=== PATIENT | female | born 1970 | race Caucasian/White ===

== ENCOUNTER 2019-12-29 11:11 | Outpatient (REF) | payer MEDICARE, MEDICAID, SELFPAY ==
[2019-12-29 14:32] LABS: Anion Gap 9 (12-20); Blood Urea Nitrogen 13 mg/dL (9-16); Carbon Dioxide 30 mmol/L (22-29); Chloride 104 mmol/L (96-108); Estimated Glomerular Filt Rate > 60; Potassium 4.1 mmol/l (3.3-5.1); Sodium 139 mmol/L (135-145)
[2019-12-30 11:17] LABS: Thyroglobulin 57.8 ng/mL; Thyroglobulin Antibodies <1 IU/mL (< or = 1)
== END 2019-12-29 11:12 | disposition home or self-care (01) ==
LOC: HO.10HDL 11:11
PROVIDERS: Visit Provider Family Medicine
DX: I10 Essential (primary) hypertension (principal); E01.0 Iodine-deficiency related diffuse (endemic) goiter
CPT/HCPCS: 36415; 80051; 82565; 84432; 84443; 84520; 86800

== ENCOUNTER 2020-01-29 08:40 | Outpatient (REF) | payer MEDICARE, MEDICAID, SELFPAY ==
--- NOTE | 2020-01-29 08:43 | MR_ITS ---
EXAMINATION: MR CERVICAL SPINE WITHOUT CONTRAST CLINICAL INFORMATION: Ataxia. Hyperreflexia. COMPARISON: None available. TECHNIQUE: MRI of the cervical spine was performed using routine sequences without contrast. FINDINGS: The cervical vertebral bodies maintain normal heights and alignment. Mild intervertebral disc height loss is seen at C3-C4, C4-C5, and C5-C6. No bone marrow edema is noted. Mild levoscoliotic curvature is seen. The cervical cord signal appears normal. The imaged portions of the intracranial contents appear normal. Incidental note is made of abnormal soft tissue prominence of the left palatine tonsil best seen on series 7 image 07/10. The uvula appears mildly deviated towards the right. A 1 cm nodule is present in the posterior aspect of the left lobe of the thyroid gland. SPINAL LEVELS: C2-C3: No posterior disc abnormality. No spinal canal or neural foraminal stenosis. C3-C4: No posterior disc abnormality. No spinal canal or neural foraminal stenosis. C4-C5: No posterior disc abnormality. No spinal canal or neural foraminal stenosis. C5-C6: Minimal disc bulging with disc height loss. No spinal canal or neural foraminal stenosis. C6-C7: No posterior disc abnormality. No spinal canal or neural foraminal stenosis. C7-T1: No posterior disc abnormality. No spinal canal or neural foraminal stenosis. MR/MR cervical spine wo con IMPRESSION: No spinal canal or neural foraminal stenosis identified. Incidentally noted soft tissue prominence within the left palatine tonsil which could be related to asymmetric lymphoid tissue. Consider direct visual inspection to exclude an underlying lesion.
== END 2020-01-29 08:41 | disposition home or self-care (01) ==
LOC: HO.MRI 08:40
PROVIDERS: PCP Family Medicine; Visit Provider Psychiatry & Neurology Neurology
DX: R27.0 Ataxia, unspecified (principal); R29.2 Abnormal reflex
CPT/HCPCS: 72141

== ENCOUNTER 2020-08-28 12:55 | Outpatient (REF) | payer MEDICARE, MEDICAID, SELFPAY ==
[2020-08-28 15:03] LABS: Thyroid Stimulating Hormone 0.23 uIU/mL (0.32-4.0)
[2020-08-28 15:16] LABS: Erythrocyte Sedimentation Rate 14 MM/HR (0-20)
[2020-08-28 15:17] LABS: Folate > 20.0 ng/mL (> or = 4.0); Vitamin B12 675 pg/mL (200-900)
[2020-08-29 08:32] LABS: Lyme Abs Screen <0.90 index
[2020-08-30 14:36] LABS: Anti Nuclear Antibody Screen NEGATIVE (NEGATIVE)
== END 2020-08-28 12:56 | disposition home or self-care (01) ==
LOC: HO.LAB 12:55
PROVIDERS: PCP Family Medicine; Visit Provider Psychiatry & Neurology Neurology
DX: H05.20 Unspecified exophthalmos (principal)
CPT/HCPCS: 36415; 82550; 82607; 82746; 84443; 85652; 86038; 86039; 86617; 86618

== ENCOUNTER → 2021-03-05 12:12 | Outpatient (REF) | payer MEDICARE, MEDICAID, SELFPAY ==
--- NOTE | 2021-03-05 12:18 | ECG_ITS ---
Test Reason : tachy Blood Pressure : / mmHG Vent. Rate : 117 BPM Atrial Rate : 117 BPM P-R Int : 168 ms QRS Dur : 118 ms QT Int : 336 ms P-R-T Axes : 054 052 007 degrees QTc Int : 468 ms Sinus tachycardia Possible Left atrial enlargement Incomplete right bundle branch block Abnormal ECG No previous ECGs available Referred By: Harpreet Quiñones Electronically Signed By:GUMARO BRAUN
== END ==
LOC: HO.CARD 12:12
PROVIDERS: PCP Family Medicine; Visit Provider Family Medicine
DX: R00.0 Tachycardia, unspecified (principal); I45.19 Other right bundle-branch block; R94.31 Abnormal electrocardiogram [ECG] [EKG]
CPT/HCPCS: 93005

== ENCOUNTER → 2021-04-07 10:25 | Outpatient (REF) | payer MEDICARE, MEDICAID, SELFPAY ==
--- NOTE | 2021-04-07 10:35 | ECG_ITS ---
Test Reason : tachycardia Blood Pressure : / mmHG Vent. Rate : 110 BPM Atrial Rate : 110 BPM P-R Int : 170 ms QRS Dur : 114 ms QT Int : 354 ms P-R-T Axes : 059 052 -18 degrees QTc Int : 479 ms Sinus tachycardia Possible Left atrial enlargement Incomplete right bundle branch block ST & T wave abnormality, consider anterior ischemia Abnormal ECG When compared with ECG of 05-MAR-2021 12:23, No significant change was found Referred By: Harpreet Quiñones Electronically Signed By:JENA MARKHAM MD
== END ==
LOC: HO.CARD 10:25
PROVIDERS: PCP Family Medicine; Visit Provider Family Medicine
DX: R00.0 Tachycardia, unspecified (principal); I45.10 Unspecified right bundle-branch block
CPT/HCPCS: 93005

== ENCOUNTER 2021-11-05 09:43 | Outpatient (REF) | payer MEDICARE, MEDICAID, SELFPAY ==
[2021-11-05 11:03] LABS: Anion Gap 12 (12-20); Blood Urea Nitrogen 16 mg/dL (9-16); Carbon Dioxide 28 mmol/L (22-29); Chloride 104 mmol/L (96-108); Estimated Glomerular Filt Rate > 60; Potassium 4.1 mmol/L (3.3-5.1); Sodium 140 mmol/L (135-145)
== END 2021-11-05 09:44 | disposition home or self-care (01) ==
LOC: HO.10HDL 09:43
PROVIDERS: Visit Provider Family Medicine
DX: I10 Essential (primary) hypertension (principal)
CPT/HCPCS: 36415; 80051; 82565; 84520

== ENCOUNTER 2022-01-16 12:18 | Outpatient (REF) | payer MEDICARE, MEDICAID, SELFPAY ==
[2022-01-16 13:39] LABS: MANUAL DIFF FLAG NO
[2022-01-16 13:44] LABS: Basophils Absolute Auto 0.1 X10*3/uL (0.0-0.2); Basophils Percent Auto 1.1 % (0-2); Eosinophils Percent Auto 0.8 % (0-4); Hematocrit 40.7 % (37.0-47.0); Hemoglobin 13.1 g/dl (12.0-16.0); Imm Gran Abs Auto 0.01 X10*3/uL (0.00-0.03); Imm Gran Pct Auto 0.2 % (0.0-0.4); Lymphocytes Absolute Auto 1.2 X10*3/uL (1.2-4.9); Lymphocytes Percent Auto 22.8 % (20-40); Mean Corpuscular HGB Conc 32.2 g/dl (31.0-35.0); Mean Corpuscular Hemoglobin 32.3 pg (27.0-33.0); Mean Corpuscular Volume 100.5 fL (80.0-98.0); Mean Platelet Volume 12.1 fL (9.4-12.3); Monocytes Absolute Auto 0.5 X10*3/uL (0.1-1.2); Monocytes Percent Auto 9.5 % (2-11); Neutrophils Absolute Auto 3.5 x10*3/uL (2.0-8.3); Neutrophils Percent Auto 65.6 % (45-73); Platelet Count 242 X10*3/uL (160-400); Red Blood Count 4.05 X10*6/uL (4.20-5.50); Red Cell Distribution Width 12.9 % (11.0-16.0); White Blood Count 5.3 X10*3/uL (4.8-10.8)
[2022-01-16 14:19] LABS: Erythrocyte Sedimentation Rate 18 MM/HR (0-20)
[2022-01-16 14:30] LABS: Free T4 (Free Thyroxine) 0.97 ng/dL (0.71-1.85); Thyroid Stimulating Hormone 0.26 uIU/mL (0.32-4.0)
[2022-01-19 21:36] LABS: Thyroglobulin 61.5 ng/mL
== END 2022-01-16 12:19 | disposition home or self-care (01) ==
LOC: HO.10HDL 12:18
PROVIDERS: Visit Provider Family Medicine
DX: Z13.89 Encounter for screening for other disorder (principal)
CPT/HCPCS: 36415; 84432; 84439; 84443; 85025; 85652

== ENCOUNTER → 2022-01-16 12:36 | Outpatient (REF) | payer MEDICARE, MEDICAID, SELFPAY ==
--- NOTE | 2022-01-16 12:42 | CA_ITS ---
Transthoracic Echocardiogram Patient (Last, First, Middle): Lanny Murphy, Gender: Female Date of : 1970 Age: 51 Procedure Date: 01/16/2022 Procedure Type: Transthoracic Echocardiogram Location: OP Height: 157.48 cm Weight: 45.36 kg BSA: 1.42 m2 Heart Rate: 94 bpm BP: 115 / 52 mmHg Modern Languages Professor: SB Referring MD: Harpreet Quiñones MD Symptoms: R01.1 Study Quality: TDS, but adequate due to pectus excavatum. ECG Rhythm: Sinus Conclusions: - The left ventricular systolic function is normal. The calculated ejection fraction is 67% by biplane method. - There is mild septal asymmetric hypertrophy. - There is mild calcification of the aortic valve. - No obvious valvular pathology seen on this study. Findings Left Ventricle Normal left ventricular cavity size. The left ventricular systolic function is normal. The calculated ejection fraction is 67% by biplane method. There is no evidence of regional wall motion abnormalities. Diastolic function is indeterminate on the basis of available data. There is mild septal asymmetric hypertrophy. Right Ventricle Normal right ventricular cavity size and systolic function. Atria Both atria are normal in size. Aortic Valve There is mild calcification of the aortic valve. There is no aortic valve stenosis. There is no aortic valve regurgitation. Mitral Valve The mitral valve appears normal. There is no mitral valve regurgitation. There is no mitral valve stenosis. Pulmonic Valve The pulmonic valve is likely normal. Tricuspid Valve There is trace tricuspid valve regurgitation. There is no evidence of pulmonary hypertension. Great Vessels The asc aorta is normal in size. Venous The inferior vena cava is normal in size and collapses greater than 50% with inspiration. Pericardium/Pleural There is no evidence of pericardial effusion. Prior Study Comparison Changes noted compared to prior study dated: 07/25/2014. Mild septal hypertrophy noted. Recommendations, Care & Conclusions No obvious valvular pathology seen on this study. Measurements 2D Linear Measurements IVSd: 1.26 0.6-0.9/0.6-1.0 cm LVIDd: 3.36 3.9-5.3/4.2-5.9 cm LVIDd Index: 2.37 2.4-3.2/2.2-3.1 cm/m2 LVIDs: 2.08 2.0-3.6 cm LVPWd: 0.55 0.7-1.1 cm LV Mass: 104.43 67-162/88-224 g LV Mass Index: 73.54 43-95/49-115 g/m2 LVOT Diam: 2.30 3.0+(-)1.3 cm 2D Systolic Function EF 4C: 64.60 >55% EF 2C: 66.40 >55% EF BiP: 67.20 >55% Mitral Valve MV Pk E: 0.74 MV PK A: 1.00 MV Decel Time: 210.00 E/A: 0.70 E'Lateral: 5.33 E'Medial: 5.55 E/E' Med: 13.30 E/E' Lat: 13.80 PHT: 62.00 MVA PHT: 3.55 Decel Titus: 3.50 Aortic Valve AoV Pk Fabrice: 1.44 AoV Mn Fabrice: 0.93 AoV VTI: 0.24 AoV Pk Grad: 8.00 Aov Mn Grad: 4.00 THIEN Cont.VTI: 3.58 LVOT LVOT Pk Fabrice: 1.12 LVOT Mn Afbrice: 0.77 LVOT VTI: 0.21 LVOT Pk Grad: 5.00 LVOT Mn Grad: 3.00 LVOT Diam: 2.30 LVOT Area: 4.15 Diastolic Function MV Pk E: 0.74 MV Pk A: 1.00 E/A: 0.70 E'Medial: 5.55 E/E' Med: 13.30 E' Laterial: 5.33 E/E' Lat: 13.80 Right Ventricle TAPSE (mm): 19.60 TVS' Fabrice: 11.20 Tricuspid Valve TR Pk Fabrice: 2.33 TR Pk Grad: 22.00 RA Press: 3.00 RVSP: 25.00 Great Vessels Aorta Sinus of Valsalva: 2.70 2.0-3.5 cm Ao Asc: 2.10 2.1-3.4 cm Pulmonary Veins Pulm Vein S/D 1.50 Pulmonary Valve PV Pk Fabrice: 1.02 Peak PV Grad: 4.00 Updated in Other Vendor System with Status of Final Deni Paz MD electronically signed on 01/17/2022 12:30:06 PM with status of Final
== END ==
LOC: HO.CARD 12:36
PROVIDERS: PCP Family Medicine; Visit Provider Family Medicine
DX: R01.1 Cardiac murmur, unspecified (principal); R00.0 Tachycardia, unspecified
CPT/HCPCS: 36415; 84432; 84439; 84443; 85025; 85652; 93306

== ENCOUNTER 2022-04-28 09:03 | Outpatient (REF) | payer MEDICARE, MEDICAID, SELFPAY ==
[2022-04-28 11:08] LABS: Anion Gap 14 (12-20); Blood Urea Nitrogen 17 mg/dL (9-16); Carbon Dioxide 25 mmol/L (22-29); Chloride 105 mmol/L (96-108); Estimated Glomerular Filt Rate > 60; Potassium 3.6 mmol/L (3.3-5.1); Sodium 140 mmol/L (135-145)
== END 2022-04-28 09:04 | disposition home or self-care (01) ==
LOC: HO.10HDL 09:03
PROVIDERS: Visit Provider Family Medicine
DX: I10 Essential (primary) hypertension (principal)
CPT/HCPCS: 36415; 80051; 82565; 84520

== ENCOUNTER → 2022-08-18 12:44 | Outpatient (BNVA) | payer MEDICARE, MEDICAID, SELFPAY | PROVIDERS: PCP Family Medicine; Visit Provider Psychiatry & Neurology Neurology | DX: R26.9 Unspecified abnormalities of gait and mobility (principal) | CPT/HCPCS: 99202 ==

== ENCOUNTER 2022-10-23 07:56 | Outpatient (REF) | payer MEDICARE, MEDICAID, SELFPAY ==
--- NOTE | ~2022-10-23 | MR_ITS ---
EXAMINATION: MR BRAIN WITHOUT CONTRAST CLINICAL INFORMATION: Abnormality of gait and mobility. COMPARISON: Brain MRI dated 11/28/2018. TECHNIQUE: Multiplanar, multisequence imaging of the brain was performed without contrast. FINDINGS: No diffusion abnormalities are identified to suggest an acute or subacute infarct. The ventricles are normal in size. No mass effect or midline shift is seen. A subcentimeter focus of T2 hyperintense signal change in the left frontal kaplan radiata is stable. No extra-axial fluid collections are seen. The brainstem and cerebellum are normal. Heterogeneous marrow signal in the clivus with regions of fatty change are stable. The gradient refocused acquisition is normal. The craniovertebral junction and remaining midline structures are normal. The major intracranial flow voids at the level of the [place] are preserved. The dural venous sinus flow voids are maintained. The mastoid air cells are well aerated. Chronic mucosal opacification of the right frontal sinus and right frontal recess again evident. The remaining paranasal sinuses are otherwise fairly well aerated. MR/MR head/brain wo con IMPRESSION: Stable examination. No acute process. Punctate focus of chronic signal in the left frontal kaplan radiata of indeterminate etiology and clinical significance. Chronic mucosal opacification of the right frontal sinus.
== END 2022-10-23 07:57 | disposition home or self-care (01) ==
LOC: HO.MRI 07:56
PROVIDERS: PCP Family Medicine; Visit Provider Psychiatry & Neurology Neurology
DX: R26.9 Unspecified abnormalities of gait and mobility (principal); R42 Dizziness and giddiness
CPT/HCPCS: 70551

== ENCOUNTER 2022-11-19 13:47 | Outpatient (AMB) | payer MEDICARE, MEDICAID, SELFPAY ==
--- NOTE | 2022-11-19 13:55 | A.OFFVIS_ITS ---
Intake Vital Signs 11/19/22 13:56 Height 5 ft 2.5 in Weight 108 lb BMI 19.4 BP 100/60 Blood Pressure Location Rt brachial Position Sitting Intake Visit Reasons: 3m follow up Parkinson - Confirmed Intake Note: Pt presents today for fup, states shes feeling the same Allergies Iodinated Contrast Media [IV DYE, IODINE CONTAINING] Allergy (Severe, Verified 11/19/22 14:00) THROAT EDEMA HPI HPI Comments History of Present Illness Details 52 y/o female comes for evaluation of ga it difficulty. Pt reports light headedness and feeling like passing out, but no episodes of passing out. Pt denies double vision or vertigo. It happens anytime of the day, but happens mostly when she start walking. No falls reported. She is on lisinopril 10 mg, losartan 50 mg and metoprolol 100 mg daily. Reviewed patient's previous ECG result. Sinus tachycardia Possible Left atrial enlargement Incomplete right bundle branch block ST & T wave abnormality, consider anterior ischemia Abnormal ECG When compared with ECG of 05-MAR-2021 12:23, No significant change was found She did not start physical therapy yet. Pt has hx of 2 eye surgeries for her strabismus [facility] Medical History Dizziness Gait disorder Strabismus HTN (hypertension) Surgical History History of knee surgery Hx of eye surgery Family History Father Lymphoma Social History (Updated 11/19/22 @ 14:01 by Raiza Wilkinson) Alcohol intake: never Patient Tobacco Use Status: Never used Tobacco Review of Systems Const All systems reviewed & are unremarkable except as noted in HPI and below Physical Exam Vital Signs: Last Vital Signs BP 100/60 11/19/22 13:56 BMI result Body Mass Index 19.4 Const Orientation/consciousness: patient oriented x3 Neuro Other: difficulty with pursuit movements , left eye movements slower retrognathia trunk tilted to left , no scoliosis gait, narrow based, slow small steps . Tone LE mild increase Hip tilted to left General: patient oriented x3, moves all extremities and no focal motor deficits Cranial nerves: Yes Normal facial strength present, Yes Midline tongue present and Yes Symmetric palate elevation present Cognition (Neuro): normal cognition Motor exam (neuro): 5/5 motor strength present throughout and Normal motor muscle tone present throughout Deep tendon reflexes (DTR's): Right triceps reflex intensity grade: 1+, Left triceps reflex intensity grade: 1+, Rt Biceps (C5, C6): 1+, Left biceps reflex intensity grade: 1+, Right brachioradialis reflex intensity grade: 1+, Left brachioradialis reflex intensity grade: 1+, Right patellar reflex intensity grade: 1+ and Left patellar reflex intensity grade: 1+ Coordination: [id number] test normal Assessment & Plan Assessment & Plan (1) Gait disorder: Comment: likely developmental ? CP Code(s): R26.9 - Unspecified abnormalities of gait and mobility (2) Dizziness: Code(s): R42 - Dizziness and giddiness (3) Light headedness: Code(s): R42 - Dizziness and giddiness Plan Advised patient to hold lisinopril and monitor BP. Pt has appointment with her primary care on 12/04/22, and advised patient to have BP medication reevaluation. Physical therapy order given to patient. Advised patient to increase PO fluid intake and change her position slowly. Coding Level of Care Code Est Pt Level 3 (14246) Diagnoses Gait disorder R26.9 Dizziness R42 Light headedness R42
[2022-11-19 13:56] VITALS: BP 100/60; BMI 19.4
== END 2022-11-19 14:19 | disposition home or self-care (01) ==
PROVIDERS: PCP Family Medicine; Visit Provider Nurse Practitioner Family
DX: R26.9 Unspecified abnormalities of gait and mobility (principal); R42 Dizziness and giddiness
CPT/HCPCS: 99213

== ENCOUNTER → 2022-11-19 13:47 | Outpatient (BNVA) | payer MEDICARE, MEDICAID, SELFPAY | PROVIDERS: PCP Family Medicine; Visit Provider Nurse Practitioner Family | DX: R26.9 Unspecified abnormalities of gait and mobility (principal); R42 Dizziness and giddiness | CPT/HCPCS: 99212 ==

== ENCOUNTER 2022-12-18 09:04 | Outpatient (RCR) | payer MEDICARE, MEDICAID, SELFPAY | END 2022-12-28 12:10 | disposition home or self-care (01) | LOC: HO.PT 09:04 | PROVIDERS: PCP Family Medicine; Visit Provider Psychiatry & Neurology Neurology | DX: R26.9 Unspecified abnormalities of gait and mobility (principal) | CPT/HCPCS: 97162 ==

== ENCOUNTER 2022-12-23 08:13 | Outpatient (REF) | payer MEDICARE, MEDICAID, SELFPAY | END 2022-12-23 08:14 | disposition home or self-care (01) | LOC: HO.LAB 08:13 | PROVIDERS: PCP Family Medicine; Visit Provider Family Medicine | DX: I10 Essential (primary) hypertension (principal); R00.0 Tachycardia, unspecified; Z82.49 Family history of ischemic heart disease and other diseases of the circulatory system | CPT/HCPCS: 36415; 80051; 80061; 82565; 84520; 85025 ==

== ENCOUNTER → 2023-03-24 09:57 | Outpatient (REF) | payer MEDICARE, MEDICAID, SELFPAY ==
--- NOTE | 2023-03-24 10:01 | HM_ITS ---
Conclusion: 1. Patient was monitored for total period of 2 days 2. Baseline was normal sinus rhythm with average heart of 92 beats per minute 3. Frequent sinus tachycardia noted 28% of time heart rate about 100 beats per minute 4. No significant pauses noted 5. Rare ectopy noted 6. No patient reported events MTDD
== END ==
LOC: HO.CARD 09:57
PROVIDERS: PCP Family Medicine; Visit Provider Family Medicine
DX: I49.8 Other specified cardiac arrhythmias (principal)
CPT/HCPCS: 93242

== ENCOUNTER → 2023-03-24 10:01 | Outpatient (BNV) | payer MEDICARE, MEDICAID, SELFPAY | PROVIDERS: PCP Family Medicine; Visit Provider Internal Medicine Cardiovascular Disease | DX: R00.0 Tachycardia, unspecified (principal) | CPT/HCPCS: 93244 ==

== ENCOUNTER 2023-07-07 13:00 | Outpatient (AMB) | payer MEDICARE, MEDICAID, SELFPAY ==
--- NOTE | 2023-07-07 13:02 | MHC.OFFVIS ---
Vital Signs 07/07/23 13:08 Height 5 ft 2.5 in Weight 117 lb 8 oz BMI 21.1 BP 112/60 Blood Pressure Location Lt brachial Position Sitting Pulse 90 Pulse Source Pulse Oximeter Pulse Oximetry (%) 100 Oxygen Delivery Method Room Air Intake Visit Reasons: follow up Parkinson - Confirmed Intake Note: Patient presents for f/u. Allergies Iodinated Contrast Media [IV DYE, IODINE CONTAINING] Allergy (Severe, Verified 07/07/23 13:07) THROAT EDEMA HPI Comments Details: 53 y/o female comes for follow up of light headedness. Pt reports light headedness and feeling like passing out, but no episodes of passing out. Pt denies double vision or vertigo. It happens anytime of the day, but happens mostly when she walks long distance. She does not get light headedness when she is sitting or resting. She feels like passing out . No falls reported. She is on carvedilol 12.5 mg, lisinopril 10 mg, losartan 50 mg and metoprolol 100 mg daily. Reviewed patient's previous ECG result. Sinus tachycardia Possible Left atrial enlargement Incomplete right bundle branch block ST & T wave abnormality, consider anterior ischemia Abnormal ECG When compared with ECG of 05-MAR-2021 12:23, No significant change was found. Pt has hx of 2 eye surgeries for her strabismus. Pt reports snoring, but denies daytime sleepiness or sleep disturbance. Pt does not want to do sleep study at this time. [facility] Medical History Dizziness Gait disorder Strabismus HTN (hypertension) Surgical History History of knee surgery Hx of eye surgery Family History Father Lymphoma Social History Alcohol intake: never Patient Tobacco Use Status: Never used Tobacco Review of Systems Const All systems reviewed & are unremarkable except as noted in HPI and below Physical Exam Vital Signs: BMI result Body Mass Index 21.1 Const Orientation/consciousness: patient oriented x3 Neuro Other: difficulty with pursuit movements , left eye movements slower retrognathia trunk tilted to left , no scoliosis gait, narrow based, slow small steps . Tone LE mild increase Hip tilted to left General: patient oriented x3, moves all extremities and no focal motor deficits Cranial nerves: Yes Normal facial strength present, Yes Midline tongue present and Yes Symmetric palate elevation present Cognition (Neuro): normal cognition Motor exam (neuro): 5/5 motor strength present throughout and Normal motor muscle tone present throughout Deep tendon reflexes (DTR's): Right triceps reflex intensity grade: 1+, Left triceps reflex intensity grade: 1+, Rt Biceps (C5, C6): 1+, Left biceps reflex intensity grade: 1+, Right brachioradialis reflex intensity grade: 1+, Left brachioradialis reflex intensity grade: 1+, Right patellar reflex intensity grade: 1+ and Left patellar reflex intensity grade: 1+ Coordination: [id number] test normal Assessment & Plan Assessment & Plan (1) Gait disorder: Comment: likely developmental ? CP Code(s): R26.9 - Unspecified abnormalities of gait and mobility Category: Medical (2) Light headedness: Code(s): R42 - Dizziness and giddiness Category: Medical Plan Advised patient to consult with her industrial technologist for cardiac medication for re-evaluation if metoprolol dosage can be decreased, and monitor BP and HR. Advised patient to increase PO fluid intake and change her position slowly. Coding Level of Care Code Est Pt Level 3 (32839) Diagnoses Gait disorder R26.9 Light headedness R42
[2023-07-07 13:08] VITALS: BP 112/60; PULSE 90; O2SAT 100; BMI 21.1
== END 2023-07-07 13:35 | disposition home or self-care (01) ==
PROVIDERS: PCP Family Medicine; Visit Provider Nurse Practitioner Family
DX: R26.9 Unspecified abnormalities of gait and mobility (principal); R42 Dizziness and giddiness
CPT/HCPCS: 99213

== ENCOUNTER → 2023-07-07 13:00 | Outpatient (BNVA) | payer MEDICARE, MEDICAID, SELFPAY | PROVIDERS: PCP Family Medicine; Visit Provider Nurse Practitioner Family | DX: R26.9 Unspecified abnormalities of gait and mobility (principal); R42 Dizziness and giddiness | CPT/HCPCS: 99212 ==

== ENCOUNTER 2023-08-10 12:47 | Outpatient (REF) | payer MEDICARE, MEDICAID, SELFPAY ==
[2023-08-10 13:12] LABS: MANUAL DIFF FLAG NO
[2023-08-10 13:46] LABS: Basophils Absolute Auto 0.1 X10*3/uL (0.0-0.2); Basophils Percent Auto 1.3 % (0-2); Eosinophils Absolute Auto 0.1 X10*3/uL (0.0-0.4); Hematocrit 38.1 % (37.0-47.0); Hemoglobin 12.5 g/dl (12.0-16.0); Imm Gran Abs Auto 0.01 X10*3/uL (0.00-0.03); Imm Gran Pct Auto 0.2 % (0.0-0.4); Lymphocytes Absolute Auto 1.1 X10*3/uL (1.2-4.9); Mean Corpuscular HGB Conc 32.8 g/dl (31.0-35.0); Mean Corpuscular Hemoglobin 31.8 pg (27.0-33.0); Mean Corpuscular Volume 96.9 fL (80.0-98.0); Mean Platelet Volume 11.4 fL (9.4-12.3); Monocytes Absolute Auto 0.5 X10*3/uL (0.1-1.2); Monocytes Percent Auto 10.3 % (2-11); Neutrophils Absolute Auto 2.8 x10*3/uL (2.0-8.3); Neutrophils Percent Auto 61.2 % (45-73); Platelet Count 238 X10*3/uL (160-400); Red Blood Count 3.93 X10*6/uL (4.20-5.50); Red Cell Distribution Width 14.3 % (11.0-16.0); White Blood Count 4.6 X10*3/uL (4.8-10.8)
[2023-08-10 14:24] LABS: Anion Gap 9 (12-20); Blood Urea Nitrogen 15 mg/dL (9-16); Carbon Dioxide 29 mmol/L (22-29); Chloride 107 mmol/L (96-108); Estimated Glomerular Filt Rate > 60; Potassium 3.7 mmol/L (3.3-5.1); Sodium 141 mmol/L (135-145)
== END 2023-08-10 12:48 | disposition home or self-care (01) ==
LOC: HO.LAB 12:47
PROVIDERS: PCP Family Medicine; Visit Provider Family Medicine
DX: I10 Essential (primary) hypertension (principal); D72.819 Decreased white blood cell count, unspecified
CPT/HCPCS: 36415; 80051; 82565; 84520; 85025

== ENCOUNTER 2023-10-05 13:52 | Outpatient (AMB) | payer MEDICARE, MEDICAID, SELFPAY ==
--- NOTE | 2023-10-05 14:26 | MHC.OFFVIS ---
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 It seems that she has had this problem for a long time. She has been seen by Neurology. Per the initial neurology consultation in 2022, it was thought that the gait difficulty might be developmental. She was then referred to PT but then there was an issue with high blood pressure and that was not pursued. From the cardiac standpoint, no known coronary disease myocardial infarction or cardiomyopathy or any other cardiac issues. Today's blood pressure is high but she states that it is because of being anxious coming here. The previous blood pressure from June is completely normal. According to her, sometimes when she is walking she feels as though she is dizzy/lightheaded. No clear syncopal episodes. Seems more of a subjective sensation. No other complaints like anginal-type chest pains. [facility] Medical History Dizziness Gait disorder Strabismus HTN (hypertension) Surgical History History of knee surgery Hx of eye surgery Family History Father Lymphoma Social History Alcohol intake: never Patient Tobacco Use Status: Never used Tobacco Review of Systems Const Denies chills, Denies daytime sleepiness, Denies fatigue, Denies fever(s), Denies poor appetite, Denies snoring, Denies stops breathing during sleep, Denies weakness, Denies weight gain and Denies weight loss Eyes Denies loss of vision ENT Denies dizziness and Denies hearing loss Card Denies chest pain, Denies irregular heart rhythm, Denies claudication, Denies leg edema, Denies lightheadedness, Denies palpitations, Denies dyspnea on exertion and Denies orthopnea Resp Denies cough, Denies excessive phlegm production, Denies dyspnea on exertion, Denies snoring and Denies wheezing GI Denies abdominal pain, Denies hematochezia, Denies change in bowel habits, Denies nausea and Denies vomiting Denies urinary frequency and Denies dysuria Musc Denies arthralgias, Denies muscle weakness, Denies numbness and Denies other Skin/Breast Denies nail changes and Denies rash Neuro Denies Abnormal speech present, Denies dizziness, Denies loss of vision, Denies memory loss, Denies numbness and Denies weakness Psych Denies depression and Denies memory loss Endo Denies fatigue and Denies palpitations Gildardo/Lymph Denies easy bruising Aller/Immun Denies wheezing Physical Exam Vital Signs: Last Vital Signs Pulse 105 H 10/05/23 14:27 BP 190/84 H 10/05/23 14:27 BMI result Body Mass Index 20.9 Const General: comfortable and no acute distress Orientation/consciousness: patient oriented x3 HEENT Other: Unremarkable Head: Yes normal to inspection Neck Neck: Yes normal visual inspection Chest Chest palpation & inspection: normal inspection of the chest Resp Auscultation: clear to auscultation bilaterally Cardio Palpation: normal PMI Heart sounds: S1 normal heart sound present, S2 normal heart sound present, no gallops, no murmurs and no rubs GI Palpation (GI): Soft to palpation Back/Spine/Pelvis Other: unremarkable Skin General skin exam: no rashes or lesions noted Neuro General: patient oriented x3 Speech: No Abnormal speech present Extrem General: Yes normal to inspection Psych Mental Status: mental status grossly normal Office Procedures EKG Details: EKG with underlying sinus tachycardia at 105/Min; possible left atrial enlargement; right bundle-branch block pattern; otherwise unremarkable. [id number], Complete Assessment & Plan Assessment & Plan (1) Dizziness: Code(s): R42 - Dizziness and giddiness Category: Medical (2) HTN (hypertension): Code(s): I10 - Essential (primary) hypertension Category: Medical Plan EKG shows sinus tachycardia/right bundle-branch block pattern. This seems to be a chronic finding. Echocardiogram with LVEF of 67%. Mild septal hypertrophy and mild aortic valve calcification but otherwise unremarkable. Holter shows underlying sinus rhythm with an average rate of 92/Min. Sinus tachycardia about 28% the time. Overall, subjective sensation of dizziness but no objective evidence of hypotension. Rather hypertensive which she blames on anxiety. Do not believe her symptoms are cardiogenic in nature. We will anyway, check a tilt-table test to look for any clear-cut orthostatic hypotension. Otherwise, with regard to high blood pressure, she blames it on anxiety. Advised to do home blood pressure checks and contact us. She can bring it for the next visit. For meds, she is on carvedilol/losartan and she states she is very compliant. However, prior notes state rather otherwise. We discussed about these today. Orders: Orders ECG Tilt Table Test Today R42 - Dizziness and giddiness Coding Level of Care Code New Pt Level 3 (85510) Diagnoses Dizziness R42 HTN (hypertension) I10 CPT Codes EKG - CPT: 37279-[id number], Complete ([id number])
[2023-10-05 14:27] VITALS: BP 190/84; PULSE 105; BMI 20.9
== END 2023-10-05 14:56 | disposition home or self-care (01) ==
PROVIDERS: PCP Family Medicine; Visit Provider Internal Medicine
DX: I10 Essential (primary) hypertension (principal); R42 Dizziness and giddiness
CPT/HCPCS: 93010; 99213

== ENCOUNTER → 2023-10-05 13:52 | Outpatient (BNVA) | payer MEDICARE, MEDICAID, SELFPAY | PROVIDERS: PCP Family Medicine; Visit Provider Internal Medicine | DX: R42 Dizziness and giddiness (principal); I10 Essential (primary) hypertension | CPT/HCPCS: 93005; 99212 ==

== ENCOUNTER 2023-11-25 13:01 | Outpatient (AMB) | payer MEDICARE, MEDICAID, SELFPAY ==
--- NOTE | 2023-11-25 13:11 | A.OFFVIS_ITS ---
Vital Signs 11/25/23 13:12 Height 5 ft 2.5 in Weight 117 lb 4.575 oz BMI 21.1 BP 170/82 H Blood Pressure Location Lt brachial Position Sitting Pulse 88 Pulse Source Pulse Oximeter Intake Visit Reasons: 2 mth f/up tilt table/ HS Technical Mgr Required: No Allergies Iodinated Contrast Media [IV DYE, IODINE CONTAINING] Allergy (Severe, Verified 11/25/23 13:16) THROAT EDEMA Medication List - Last Reconciled 11/25/23 by Mey Perez, SOLITARIO-C carvedilol 12.5 mg PO BID losartan 100 mg PO DAILY multivitamin 1 tab PO DAILY HPI HPI 2 mth f/up tilt table/ HS: Details: Lanny is a 53-year-old female with past medical history of hypertension, gait disorder, chronic lightheadedness who recently underwent a tilt-table test and now presents for follow-up. Today she reports that she continues to have lightheadedness when she is walking. She says she can only walk down the street for 1 house and then she has to stop. She feels that if she pushes herself she may pass out. In the past she used to walk all over but not in the last many years. She said her lightheadedness symptoms started 10 years ago after having physical therapy on her left shoulder and she heard a crack in the shoulder joint. Since then she has had this persistent symptom however states it is only with walking. She does not have lightheadedness when sitting, laying down or rolling over in bed. No shortness of breath, PND, orthopnea or edema. No chest discomfort at rest or with activity. No presyncope, syncope, falls. She does not want to use a cane for balance. 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 She is compliant with her medications but tells me that her blood pressures are high when she comes to the doctor's offices. She does check her blood pressure at home and tells me it is good however does not know the numbers off the top of her head. PFSH Medical History Dizziness Gait disorder Strabismus HTN (hypertension) Surgical History History of knee surgery Hx of eye surgery Family History Father Lymphoma Social History Alcohol intake: never Patient Tobacco Use Status: Never used Tobacco Review of Systems Const All systems reviewed & are unremarkable except as noted in HPI and below ENT Reports dizziness (With walking for the last 10 years) Card Denies chest pain, Denies chest pain at rest, Denies chest pain with activity, Denies rapid heart rate, Denies pedal edema, Denies edema, Denies leg edema, Denies lightheadedness, Denies palpitations, Denies dyspnea, Denies dyspnea on exertion and Denies orthopnea Resp Denies cough, Denies dyspnea and Denies dyspnea on exertion GI Denies hematochezia and Denies change in stool character Musc Denies abnormal gait, Denies limited range of motion, Denies muscle cramps, Denies muscle weakness, Denies numbness, Denies radiating pain into limb, Denies stiffness and Denies tingling Neuro Denies abnormal gait, Reports dizziness (With walking for the last 10 years), Denies numbness and Denies tingling Endo Denies palpitations Physical Exam Vital Signs: Last Vital Signs Pulse 88 11/25/23 13:12 BP 170/82 H 11/25/23 13:12 BMI result Body Mass Index 21.1 Const General: cooperative, healthy appearing, comfortable and no acute distress Orientation/consciousness: patient oriented x3 Neck Neck: Yes normal visual inspection Resp Effort & Inspection: normal respiratory effort Auscultation: clear to auscultation bilaterally, no rales, no rhonchi and no wheezes Cardio Jugular venous distension: no JVD Rate: regular rate Rhythm: regular rhythm Heart sounds: S1 normal heart sound present, S2 normal heart sound present, no murmurs and no rubs Neuro General: patient oriented x3 Extrem General: Yes normal to inspection Psych Appearance: grossly normal Mental Status: mental status grossly normal Speech and movement: Normal speech and movement present Assessment & Plan Assessment & Plan (1) Light headedness: Code(s): R42 - Dizziness and giddiness Category: Medical Plan: Report of lightheadedness as described above, chronic with walking over the last 10 years. She describes that it feels like she is going to pass out but she has never had syncope. An echocardiogram was done on 01/16/2022 showing EF 67%, mild septal asymmetric hypertrophy, mild calcification of the aortic valve. Holter monitor was done on 03/24/2023 for 2 days showing sinus rhythm with average heart rate 92, frequent sinus tachycardia, 28% of the time heart rate greater than 100. EKG from 10/05/2023 shows sinus tachycardia, possible left atrial enlargement and right bundle branch block, rate. A tilt-table test was done on 11/02/2023 showing appropriate heart rate and blood pressure response to tilt. She was hypertensive at the time of the test and increasing her carvedilol was recommended. Today she reports that she still has her lightheadedness symptom with walking. Test results reviewed with her in detail. There is no cardiac f indings that contribute to her symptom. Her blood pressure is elevated today. I recommend that her carvedilol dose be increased to 25 mg b.i.d.. Her cardiology follow-up will be p.r.n.. Will forward this note to her PCP and ask that he adjust the carvedilol if he is in agreement. (2) HTN (hypertension): Code(s): I10 - Essential (primary) hypertension Category: Medical Plan: History of hypertension. Blood pressure elevated today at 170/82, recheck done by me unchanged. She says her office blood pressures are always high because of anxiety. She tells me her home blood pressures are better controlled but is not able to recall the numbers today. According to the tilt-table report she told them her home systolic typically is 140-160. Recommend increasing carvedilol dose as above. Continue losartan. Plan Time spent on chart review, documentation, interview and assessment Coding Level of Care Code Est Pt Level 3 (48056) Diagnoses Light headedness R42 HTN (hypertension) I10 Time Spent (min) 24
[2023-11-25 13:12] VITALS: BP 170/82; PULSE 88; BMI 21.1
== END 2023-11-25 14:25 | disposition home or self-care (01) ==
PROVIDERS: PCP Family Medicine; Visit Provider Nurse Practitioner Family
DX: R42 Dizziness and giddiness (principal); I10 Essential (primary) hypertension
CPT/HCPCS: 99213

== ENCOUNTER → 2023-11-25 13:01 | Outpatient (BNVA) | payer MEDICARE, MEDICAID, SELFPAY | PROVIDERS: PCP Family Medicine; Visit Provider Nurse Practitioner Family | DX: R42 Dizziness and giddiness (principal); I10 Essential (primary) hypertension | CPT/HCPCS: 99212 ==

== ENCOUNTER 2024-03-20 13:45 | Outpatient (REF) | payer MEDICARE, MEDICAID, SELFPAY ==
[2024-03-20 14:45] LABS: Hematocrit 41.9 % (37.0-47.0); Hemoglobin 13.7 g/dl (12.0-16.0); Mean Corpuscular HGB Conc 32.7 g/dl (31.0-35.0); Mean Corpuscular Hemoglobin 32.4 pg (27.0-33.0); Mean Corpuscular Volume 99.1 fL (80.0-98.0); Mean Platelet Volume 11.8 fL (9.4-12.3); Platelet Count 279 X10*3/uL (160-400); Red Blood Count 4.23 X10*6/uL (4.20-5.50); Red Cell Distribution Width 13.2 % (11.0-16.0)
[2024-03-20 14:47] LABS: WBC ABN SCTR FOR CBC 1; White Blood Count 6.7 X10*3/uL (4.8-10.8)
[2024-03-20 15:38] LABS: Anion Gap 10 (12-20); Blood Urea Nitrogen 16 mg/dL (9-16); Carbon Dioxide 29 mmol/L (22-29); Chloride 106 mmol/L (96-108); Estimated Glomerular Filt Rate > 60; Potassium 3.7 mmol/L (3.3-5.1); Sodium 141 mmol/L (135-145)
[2024-03-20 15:50] LABS: Band Neutrophils Percent 2 % (3-5); Basophils Abs Manual 0.2 X10*3/uL (0.0-0.2); Basophils Percent Manual 3 % (0-2); Lymphocytes Absolute Manual 0.9 X10*3/uL (1.2-4.9); Lymphocytes Percent Manual 14 % (20-40); Monocytes Absolute Manual 0.3 X10*3/uL (0.1-1.2); Monocytes Percent Manual 5 % (2-11); Neutrophils Absolute Manual 5.2 X10*3/uL (2.0-8.3); Neutrophils Percent Manual 76 % (45-73)
[2024-03-20 15:52] LABS: Platelet Estimate NORMAL (NORMAL); Platelet Morphology Comment NORMAL; RBC Morphology NORMAL
== END 2024-03-20 13:46 | disposition home or self-care (01) ==
LOC: HO.LAB 13:45
PROVIDERS: PCP Family Medicine; Visit Provider Family Medicine
DX: I10 Essential (primary) hypertension (principal); R55 Syncope and collapse; R00.0 Tachycardia, unspecified
CPT/HCPCS: 36415; 80051; 82565; 84520; 85007; 85027

== ENCOUNTER 2024-10-02 08:15 | Emergency (ER) | payer MEDICARE, MEDICAID, SELFPAY ==
--- NOTE | ~2024-10-02 | XR_ITS ---
EXAMINATION: XR KNEE, LEFT CLINICAL INFORMATION: patellar diasocation post reduction COMPARISON: None available. TECHNIQUE: Four views of the left knee. FINDINGS: No definite fracture, dislocation, or suspicious bone lesion. The patella appears normally aligned currently. Normal knee joint alignment. There are [address] from prior surgery involving the tibial tubercle. Joint spaces appear preserved. There is a small amount of joint fluid in the suprapatellar bursa. No soft tissue abnormality. XR/XR knee LT 4V IMPRESSION: No acute bony findings of the left knee. There is normal alignment of the patella on this radiograph. Small suprapatellar joint effusion. Electronically signed by: Ned Morgan MD 10/02/2024 09:02 AM EDT
[2024-10-02 08:28] VITALS: BP 202/85; PULSE 95; RESP 16; TEMP 37.1; O2SAT 98; BMI 21.9
--- NOTE | 2024-10-02 08:35 | ED.LOWEXIN ---
HPI - Extremity Injury (Lower) General Chief Complaint: Extremity Injury, Lower Stated Complaint: L KNEE DISLOCATION,- INJURY,HAS HX OF SAME PER EMS Time Seen by Provider: 10/02/24 08:29 Source: patient Mode of arrival: EMS Limitations: no limitations History of Present Illness HPI Narrative: This is a 54 years old the patient presented via ambulance with a chief complaint of left patella dislocation she has a history of recurrent patellar dislocation she had surgery for that. She dislocated the patella last night while asleep. complaint: knee injury Onset (ago): hour(s) (8) Injury: Left: knee Type of Injury: unknown Place: home Severity: moderate Relieving factors: nothing Exacerbating factors: nothing Other symptoms: none Related Data Home Medications ?Medication ?Instructions ?Recorded ?Confirmed multivitamin 1 tab PO DAILY 08/18/22 11/25/23 carvedilol 12.5 mg tablet 12.5 mg PO BID 07/07/23 11/25/23 losartan 100 mg tablet 100 mg PO DAILY 10/05/23 11/25/23 Allergies Allergy/AdvReac Type Severity Reaction Status Date / Time Iodinated Contrast Media (IV Allergy Severe THROAT Verified 10/02/24 08:32 DYE, IODINE CONTAINING) EDEMA Review of Systems ENT: Reports system reviewed and no additional complaints, except as documented Cardiovascular: Cardiovascular: Reports no additional cardiovascular complaints Respiratory: Respiratory: Reports no additional respiratory complaints Musculoskeletal: Comments: Left knee pain PMFSH Past Medical History Attestation statement: The following information was validated with the patient. Medical History Dizziness Gait disorder Strabismus HTN (hypertension) Surgical History History of knee surgery Hx of eye surgery Family History Family History Father Lymphoma Social History Social History Alcohol intake: never Patient Tobacco Use Status: Never used Tobacco Advance Directives: No Advance Directives Information Provided: Yes Physical Exam Vital Signs: Vital Signs: Last Vital Signs Temp 98.8 F 10/02/24 08:28 Pulse 95 10/02/24 08:28 Resp 16 10/02/24 08:28 BP 202/85 H 10/02/24 08:28 Pulse Ox 98 10/02/24 08:28 O2 Del Method Room Air 10/02/24 08:28 BMI result Body Mass Index 21.9 Const: General: cooperative Nutritional Appearance: average body habitus Orientation/consciousness: patient oriented x3 Limitations: no limitations HEENT: Head: Yes normal to inspection Ears: hearing grossly normal bilaterally General nose exam: Normal external nose present Face and sinus: Yes normal facial exam Mouth: Normal oral and palatal mucosa present Neck: Neck: Yes normal visual inspection Chest: Chest palpation & inspection: normal inspection of the chest Resp: Effort & Inspection: normal respiratory effort Auscultation: clear to auscultation bilaterally Cardio: Jugular venous distension: no JVD Rate: regular rate Rhythm: regular rhythm GI: Inspection: Yes normal to inspection Palpation (GI): Soft to palpation Auscultation: normal bowel sounds Skin: General skin exam: no rashes or lesions noted and elasticity normal Lesions: no lesions Rashes: no rashes Neuro: General: patient oriented x3 Cranial nerves: Yes CN's II-XII intact bilaterally Extrem: Other: left knee patellar dislocation present unable to bend the knee deformity present good pulses in the lower extremity Course Reevaluation(s) Reevaluation #1: Patella was reduced by me x-ray showed good position Time: 09:21 Medical Decision Making Medical Decision Making MDM Narrative: Patient presented with a left patellar dislocation the patella was reduced by me successfully reduction was confirmed by x-ray Differential Diagnosis Differential Diagnoses: The differential diagnosis associated with the presentation includes Patellar dislocation/knee dislocation Independent Interpretation I performed an independent interpretation of an: Plain X-Ray Interpretation: I reviewed the x-ray interpreted by ga reduction of the dislocation Radiology Impression Discussion of test interpretation with radiology: I have reviewed the radiologist's reading. Radiologist Impression: Left knee reduced patellar dislocation Independent Historian Clinical information obtained from an independent historian. History obtained from or confirmed by: EMS External Record Review External record reviewed: Inpatient record Procedures Orthopedic Joint Reduction left patellar dislocation: Time Out Performed: Yes Side: left Joint Reduction Location: knee/patella Analgesia: none Technique used: direct manipulation Post-reduction neuro exam: intact Post-reduction vascular: intact Post Reduction X-Ray Obtained: Yes Post Reduction X-Ray Results: reduced Patient Tolerated Procedure: well Discharge Plan Discharge Clinical Impression: Closed dislocation of left patella Qualifiers: Encounter type: initial encounter Qualified Code(s): S83.005A - Unspecified dislocation of left patella, initial encounter Patient Disposition: Home, Self-Care Instructions: Patellar Dislocation (ED) Additional Instructions: Follow-up with the orthopedist return to the emergency room if worse Prescriptions: No Action multivitamin Tablet 1 tab PO DAILY losartan 100 mg tablet 100 mg PO DAILY carvedilol 12.5 mg tablet 12.5 mg PO BID Referrals: Sammy Figueora MD [Physician, Orthopedics] - 10/06/24 Print Language: Sudanese
--- NOTE | 2024-10-02 08:44 | PC.NURSE ---
md tysonv has reduced L knee, pt tolerated this well, awaitng xray.
[2024-10-02 09:25] VITALS: BP 195/56; PULSE 195; RESP 17; TEMP 36.4; O2SAT 98
--- NOTE | 2024-10-02 09:28 | PC.NURSE ---
md austin has reevaluated pt, we called Ganga mother for tranpsot home.
[2024-10-02 10:29] VITALS: BP 195/56; PULSE 78; RESP 17; TEMP 36.6
== END 2024-10-02 10:32 | disposition home or self-care (01) ==
PROVIDERS: Emergency Provider Emergency Medicine
DX: M22.02 Recurrent dislocation of patella, left knee (principal); M25.462 Effusion, left knee
CPT/HCPCS: 27560; 73564; 99283; 99284

== ENCOUNTER → 2024-10-02 08:34 | Outpatient (BNV) | payer MEDICARE, MEDICAID, SELFPAY | PROVIDERS: Emergency Provider Emergency Medicine; Visit Provider Radiology Diagnostic Radiology | DX: M25.462 Effusion, left knee (principal) | CPT/HCPCS: 73564 ==

== ENCOUNTER 2024-10-20 08:11 | Outpatient (REF) | payer MEDICARE, MEDICAID, SELFPAY ==
--- NOTE | ~2024-10-20 | XR_ITS ---
EXAMINATION: XR KNEE, LEFT CLINICAL INFORMATION: M25.562 - Pain in left knee COMPARISON: October 02, 2024. TECHNIQUE: AP view standing positions disease. Lateral and sunrise. of the left knee. FINDINGS: There is loosening surrounding the two metallic screws in the proximal diaphysis tibia. Joint space narrowing involving mostly the lateral compartment. No gross joint effusion in the suprapatellar bursa. No acute cortical disruption or gross malalignment. XR/XR knee LT 3V IMPRESSION: Loosening surrounding the two metallic screws. Electronically signed by: Ty Foster MD 10/20/2024 09:12 AM EDT
== END 2024-10-20 08:12 | disposition home or self-care (01) ==
LOC: HO.HOSX 08:11
PROVIDERS: Visit Provider Physician Assistant
DX: M17.12 Unilateral primary osteoarthritis, left knee (principal)
CPT/HCPCS: 73562; 99202

== ENCOUNTER 2024-10-20 08:23 | Outpatient (AMB) | payer MEDICARE, MEDICAID, SELFPAY ==
--- NOTE | 2024-10-20 09:27 | A.OFFVIS_ITS ---
Vital Signs 10/20/24 09:34 Height 5 ft 2 in Weight 120 lb BMI 21.9 Intake Visit Reasons: ER FU- LT patella dislocation, 10/01/24 Intake Note: Lanny is a 54 year old female who presents today as an established patient, for an ER follow up of left knee, DOI 10/01/24. Patient presented to [facility] on 10/02/24 by ambulance for a left knee dislocation while she was sleeping the night before. History of recurrent patellar dislocation, surgery performed. Patient reports waking up in severe pain, denies injury. Her pain is intermittent and fluctuates in intensity. States at times her pain is sharp. No numbness or tingling. Allergies Iodinated Contrast Media (IV DYE, IODINE CONTAINING) Allergy (Severe, Verified 10/20/24 09:33) THROAT EDEMA Medication List - Last Reconciled 10/20/24 by Tonie Servin PA-C carvedilol 12.5 mg PO BID losartan 100 mg PO DAILY multivitamin 1 tab PO DAILY HPI HPI ER FU- LT patella dislocation, 10/01/24: Details: 54-year-old female presents to the office today for a left patella dislocation which she sustained on 09/2024. She states when she was 18 years old she had recurrent patella dislocations and had a Rosangela osteotomy by Dr. Alexander. Since then she has only had two separate dislocations, 1 of these dislocations was 20 years ago and the other was on 10/01. Since then she has been doing well and has not had any issues with the left knee. She states she was sleeping and the knee dislocated in her sleep. She was seen in the emergency department where the knee was reduced and she was referred to our office for ortho eval. [facility] Medical History (Updated 10/20/24 @ 10:34 by Tonie Servin PA-C) Dizziness Gait disorder Strabismus HTN (hypertension) Surgical History (Updated 10/20/24 @ 09:32 by CHARANJIT Denise) History of knee surgery Hx of eye surgery Family History Father Lymphoma Social History (Updated 10/20/24 @ 09:33 by CHARANJIT Denise) Alcohol intake: never Patient Tobacco Use Status: Never used Tobacco Current occupational status: unemployed Review of Systems Const All systems reviewed & are unremarkable except as noted in HPI and below Physical Exam Vital Signs: BMI result Body Mass Index 21.9 Const General: cooperative and no acute distress Orientation/consciousness: patient oriented x3 Resp Effort & Inspection: normal respiratory effort and able to speak in complete sentences Cardio Peripheral pulses: Peripheral pulses 2+ throughout Neuro General: patient oriented x3 Extrem Other: Left knee normal to inspection, no effusion. Full ROM. Mild lateral retropatellar tenderness and medial sided tenderness present. NVI Results Reviewed Results Reviewed: X-rays of the left knee obtained in the office today and reviewed by me show patellofemoral arthritis and orthopedic hardware in place Assessment & Plan Assessment & Plan (1) Osteoarthritis of left patellofemoral joint: Code(s): M17.12 - Unilateral primary osteoarthritis, left knee Category: Medical Plan: The patient was fit for a Roger Pull stabilizing knee brace while in the office today. I also encouraged her to work with physical therapy and an order was erlinda sreekanth today and she was given their contact information to reach out and make an appointment. The patient was questioning whether or not surgical intervention would be warranted and I explained at this time there is no need for surgical intervention. She has only had 1 dislocation in the last 20 years and before that it was also around another 15 or so years. I also explained with the extent of her arthritis in the knee there is no surgical intervention that would stabilize her patella without further complicating her arthritic changes. If the patient develops worsening symptoms or more recurrent instability or dislocation she should contact our office for further evaluation otherwise follow up as needed. Orders: Orders XR knee LT 3V Today M25.562 - Pain in left knee Coding Level of Care Code New Pt Level 3 (43773) Complex EM visit Add On G2211 Diagnoses Osteoarthritis of left patellofemoral joint M17.12
[2024-10-20 09:34] VITALS: BMI 21.9
== END 2024-10-20 09:57 | disposition home or self-care (01) ==
LOC: HO.HOS 08:24
PROVIDERS: Visit Provider Physician Assistant
DX: M17.12 Unilateral primary osteoarthritis, left knee (principal)
CPT/HCPCS: 99203; G2211

== ENCOUNTER → 2024-10-20 08:58 | Outpatient (BNV) | payer MEDICARE, MEDICAID, SELFPAY | PROVIDERS: Visit Provider Radiology Diagnostic Radiology | DX: M25.562 Pain in left knee (principal) | CPT/HCPCS: 73562 ==

== ENCOUNTER 2024-10-25 11:07 | Outpatient (AMB) | payer MEDICARE, MEDICAID, SELFPAY ==
--- NOTE | 2024-10-25 11:12 | A.OFFVIS_ITS ---
Intake Visit Reasons: ov-LT patella dislocation Intake Note: Lanny is a 54 year old female who presents today as an established patient, with complaints of bracing status post left knee dislocation, DOI 10/01/24. Patient reports brace is causing discomfort and itchiness. She discontinued use of brace. Allergies Iodinated Contrast Media (IV DYE, IODINE CONTAINING) Allergy (Severe, Verified 10/20/24 09:33) THROAT EDEMA Medication List - Last Reconciled 10/25/24 by Tonie Servin PA-C carvedilol 12.5 mg PO BID losartan 100 mg PO DAILY multivitamin 1 tab PO DAILY HPI HPI ov-LT patella dislocation: Details: Patient came in today with concerns of her knee brace for the left knee. She states it is uncomfortable with walking and daily activities. She continues to have left knee discomfort with going up and downstairs. No recent dislocations since her last visit. [facility] Medical History (Updated 10/20/24 @ 10:34 by Tonie Servin PA-C) Dizziness Gait disorder Strabismus HTN (hypertension) Surgical History (Updated 10/20/24 @ 09:32 by CHARANJIT Denise) History of knee surgery Hx of eye surgery Family History Father Lymphoma Social History (Updated 10/20/24 @ 09:33 by CHARANJIT Denise) Alcohol intake: never Patient Tobacco Use Status: Never used Tobacco Current occupational status: unemployed Review of Systems Const All systems reviewed & are unremarkable except as noted in HPI and below Physical Exam Const General: cooperative and no acute distress Orientation/consciousness: patient oriented x3 Resp Effort & Inspection: normal respiratory effort and able to speak in complete sentences Cardio Peripheral pulses: Peripheral pulses 2+ throughout Neuro General: patient oriented x3 Extrem Other: Left knee normal to inspection, no effusion. Full ROM. Mild lateral retropatellar tenderness and medial sided tenderness present. NVI Assessment & Plan Assessment & Plan (1) Osteoarthritis of left patellofemoral joint: Code(s): M17.12 - Unilateral primary osteoarthritis, left knee Category: Medical Plan: We trialed a few knee braces in the office today from a Genumed to a wrap pop which she was not comfortable with. I reassured her the brace for her instability of her patella is the Roger Pull but she has not comfortable with that brace. I offered to try another size which she did not want to do. At the end of the visit she opted to just go with an Inocente wrap. She felt this was most comfortable for her. I explained this will likely not help reduce risk of dislocation but he she is content with her decision. She will see us back as needed. Coding Level of Care Code Est Pt Level 3 (57550) Complex EM visit Add On G2211 Diagnoses Osteoarthritis of left patellofemoral joint M17.12
== END 2024-10-25 11:52 | disposition home or self-care (01) ==
LOC: HO.HOS 11:07
PROVIDERS: Visit Provider Physician Assistant
DX: M17.12 Unilateral primary osteoarthritis, left knee (principal)
CPT/HCPCS: 99213; G2211

== ENCOUNTER → 2024-10-25 11:07 | Outpatient (BNVA) | payer MEDICARE, MEDICAID, SELFPAY | PROVIDERS: Visit Provider Physician Assistant | DX: M17.12 Unilateral primary osteoarthritis, left knee (principal) | CPT/HCPCS: 99212 ==

== ENCOUNTER 2025-01-02 12:51 | Outpatient (AMB) | payer MEDICARE, MEDICAID, SELFPAY ==
--- NOTE | 2025-01-02 12:56 | A.OFFPC_ITS ---
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: No Accompanied by: Self / Same As Patient Allergies Iodinated Contrast Media (IV DYE, IODINE CONTAINING) Allergy (Severe, Verified 01/02/25 12:57) THROAT EDEMA Tobacco use date assessed: 01/02/25 Dental Screening Dental Screen Date: 01/02/25 Did you have a dental visit in the last 12 months?: Yes Did you have a dental problem in the last 6 months where you did not have access to dental care?: No Was dental information given to patient?: Patient has dentist HPI HPI Comments History of Present Illness Details 54-year-old female with history of unspe cified developmental disorder, gait disorder/lightheadedness, osteoarthritis of the shoulder, patella dislocation, hypertension presenting to the office today for management of chronic conditions and to establish care. Hypertension-compliant with losartan 100 mg daily and carvedilol 12.5 mg twice daily. Blood pressure initially elevated in the office, 118/86 on recheck Gait disorder/lightheadedness-reports this started after receiving 2 cortisone injections in the left shoulder and during PT evaluation subsequently. Has had brain MRI and tilt-table evaluation, both of which were negative for anything that could be causing patient's symptoms. She states that this is often positional and she feels lightheaded, no vertigo. Has not syncopized but feels like she could. Does not use assistive device and is not interested in this. Patellar dislocation-has been referred to Orthopedics at [facility]. Needs PT 1 form completed Developmental disorder-denies history of CP Concerns: None other than above Health maintenance: Due for colonoscopy-has never undergone this Has never undergone Pap smear-declines Many years since last mammogram ROS: see hpi EXAM: Constitutional - Awake and Alert, No apparent distress Eyes - PERRL Cardiovascular - S1S2, RRR, No edema Respiratory - Normal lung expansion, Normal respiratory effort, No respiratory distress, CTA bilaterally Extremities - no calf tenderness bilaterally, no swelling Skin - Warm/Dry Neurological - Alert & oriented x3 Psychological - Appropriate affect PFSH Medical History (Updated 10/20/24 @ 10:34 by Tonie Servin PA-C) Dizziness Gait disorder Strabismus HTN (hypertension) Surgical History (Updated 10/20/24 @ 09:32 by CHARANJIT Denise) History of knee surgery Hx of eye surgery Family History Father Lymphoma Social History (Updated 10/20/24 @ 09:33 by CHARANIJT Denise) Housing: House Alcohol intake: never Patient Tobacco Use Status: Never used Tobacco e-Cigarette/Vaping Use: Never Used service: No Current occupational status: unemployed Questionnaire AUDIT C Alcohol Use Questionnaire (AUDIT-C) 1. How often do you have a drink containing alcohol?: Never 3. How often do you have six or more drinks on one occasion?: Never Total Score: 0 Physical exam (Primary Care) Vital Signs: Last Vital Signs Temp 97.9 F 01/02/25 13:02 Pulse 76 01/02/25 13:02 Resp 16 01/02/25 13:02 BP 150/48 H 01/02/25 13:02 Pulse Ox 100 01/02/25 13:02 Oxygen Delivery Method Room Air 01/02/25 13:02 BMI result Body Mass Index 21.2 Tobacco/Smoking Status: Tobacco use Status Tobacco use date assessed 01/02/25 01/02/25 12:59 Patient Tobacco Use Status Never used Tobacco 01/02/25 12:59 e-Cigarette/Vaping Use Never Used 01/02/25 13:06 Coding Level of Care Code New Pt Level 4 (16264) Complex EM visit Add On G2211 Diagnoses HTN (hypertension) I10 Light headedness R42 Gait disorder R26.9 Assessment & Plan Assessment & Plan (1) HTN (hypertension): Code(s): I10 - Essential (primary) hypertension Category: Medical Plan: Controlled on recheck. Continue losartan and carvedilol (2) Light headedness: Code(s): R42 - Dizziness and giddiness Category: Medical Plan: Longstanding, no syncope. Recommend assistive device but declines. Reviewed last MRI and tilt-table test results. Referred for carotid Doppler (3) Gait disorder: Comment: likely developmental ? CP Code(s): R26.9 - Unspecified abnormalities of gait and mobility Category: Medical Plan: As above. Plan Follow-up in the office in 6 months, labs to be completed as ordered below. Referred for screening colonoscopy and mammogram. 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 Will notify the office if she changes her mind Orders: Orders Complete Blood Count Auto Diff Today I10 - Essential (primary) hypertension, R42 - Dizziness and giddiness Lipid Panel Today I10 - Essential (primary) hypertension, R42 - Dizziness and giddiness Vitamin D 25-OH Total Today I10 - Essential (primary) hypertension, R42 - Dizziness and giddiness US carotid duplex BI Today R42 - Dizziness and giddiness Basic Metabolic Panel Today I10 - Essential (primary) hypertension, R42 - Dizziness and giddiness Liver Panel Today I10 - Essential (primary) hypertension, R42 - Dizziness and giddiness TSH reflex Free T4 Today I10 - Essential (primary) hypertension, R42 - Di zziness and giddiness MM tomosynthesis screening BI Today Z12.31 - Encounter for screening mammogram for malignant neoplasm of breast
[2025-01-02 13:02] VITALS: BP 150/48; PULSE 76; RESP 16; TEMP 36.6; O2SAT 100; BMI 21.2
[2025-01-02 13:18] VITALS: BP 118/86
== END 2025-01-02 13:24 | disposition home or self-care (01) ==
LOC: HO.HMCHD 12:52
PROVIDERS: PCP Physician Assistant; Visit Provider Physician Assistant
DX: I10 Essential (primary) hypertension (principal); R42 Dizziness and giddiness; R26.9 Unspecified abnormalities of gait and mobility

== ENCOUNTER → 2025-01-02 12:51 | Outpatient (BNVA) | payer MEDICARE, MEDICAID, SELFPAY | PROVIDERS: Visit Provider Physician Assistant | DX: Z76.89 Persons encountering health services in other specified circumstances (principal); I10 Essential (primary) hypertension; R42 Dizziness and giddiness; R26.9 Unspecified abnormalities of gait and mobility; Z79.899 Other long term (current) drug therapy | CPT/HCPCS: 99202 ==